=== PATIENT | female | born 1990 | race Caucasian/White ===

== ENCOUNTER 2021-06-12 13:30 | Emergency (ER) | payer OTHER ==
[2021-06-12 15:15] LABS: BASOPHIL 0.3 % (0-2); EOSINOPHIL 0.3 % (0-5); HCT 36.8 % (37.0-47.0); HGB 12.4 g/dl (12.5-16.0); LYMPHOCYTE 21.3 % (15-48); MCH 28.4 pg (25.0-31.0); MCHC 33.7 g/dL (32.0-36.0); MCV 84.2 fL (78.0-100.0); MONOCYTE 5.6 % (0-12); MPV 11.4 fL (6.0-9.5); NEUTROPHIL 72.2 % (41-80); NRBC 0; PLT 223 K/uL (150-400); RBC 4.37 M/uL (4.20-5.40); RDW 14.1 % (11.5-14.0); WBC 6.4 K/uL (4.0-10.5)
[2021-06-12 16:46] LABS: CREATININE 0.4 mg/dL (0.51-0.95); POTASSIUM 3.3 mmol/L (3.5-5.1)
== END 2021-06-12 18:10 | disposition home or self-care (01) ==
LOC: FER 13:30
PROVIDERS: Nurse Practitioner Family
DX: O98.512 Other viral diseases complicating pregnancy, second trimester (principal); O24.112 Pre-existing type 2 diabetes mellitus, in pregnancy, second trimester; U07.1 COVID-19; Z3A.14 14 weeks gestation of pregnancy; Z79.84 Long term (current) use of oral hypoglycemic drugs
CPT/HCPCS: 36415; 71045; 80048; 85025; 85379; 94640; 94664; J7030